=== PATIENT | female | born 1950 | race Caucasian/White ===

== ENCOUNTER 2023-03-13 10:03 | Emergency (ER) | payer MEDICARE, OTHER ==
[2023-03-13] MEDS ORDERED: Nitroglycerin 2% Oint 1 GM UD Packet TOP ONE (10:14)
[2023-03-13] MEDS ORDERED: Aspirin 81 MG Tab.Chew PO ONE (10:14)
[2023-03-13 10:32] LABS: BASOPHILS ABSOLUTE AUTO 0.03 10^3/uL (0.00-0.50); BASOPHILS PERCENT AUTO 0.7 % (0-1); EOSINOPHILS ABSOLUTE AUTO 0.18 10^3/uL (0.00-1.50); HEMATOCRIT 32.3 % (37.0-47.0); HEMOGLOBIN 11.3 g/dL (12.0-16.0); LYMPHOCYTES ABSOLUTE AUTO 0.92 10^3/uL (0.60-5.00); LYMPHOCYTES PERCENT AUTO 20.4 % (24-44); MEAN CORPUSCULAR HEMOGLOBIN 31.7 pg (27.0-32.0); MEAN CORPUSCULAR VOLUME 90.5 fL (83.0-97.0); MONOCYTES ABSOLUTE AUTO 0.51 10^3/uL (0.00-1.50); MONOCYTES PERCENT AUTO 11.3 % (0-10); NEUTROPHILS ABSOLUTE AUTO 2.87 x10^3/uL (1.80-8.00); NEUTROPHILS PERCENT AUTO 63.6 % (41-71); PLATELET COUNT,PLT 86 10^3/uL (150-400); RED BLOOD CELL COUNT 3.57 x10^6/uL (4.00-5.50); WHITE BLOOD CELL COUNT,WBC 4.5 10^3/uL (4.0-11.0)
[2023-03-13 10:41] LABS: APPEARANCE,URINE CLEAR (CLEAR); BILIRUBIN,URINE NEGATIVE (NEGATIVE); COLOR,URINE YELLOW (YELLOW); GLUCOSE,URINE NEGATIVE (NEGATIVE); KETONES,URINE NEGATIVE (NEGATIVE); LEUKOCYTE ESTERASE,URINE SMALL (NEGATIVE); NITRITE,URINE NEGATIVE (NEGATIVE); OCCULT BLOOD,URINE TRACE-INTACT (NEGATIVE); PH,URINE 5.5 (4.5-8.0); PROTEIN,URINE TRACE mg/dL (NEGATIVE); UROBILINOGEN,URINE 0.2 EU/dL (0.2-1.0)
[2023-03-13 10:49] LABS: BACTERIA,URINE FEW /HPF (NOT SEEN); EPITHELIAL CELLS,URINE FEW /HPF (NOT SEEN); MUCUS,URINE OCCASIONAL /HPF (NOT SEEN); RBC,URINE 0-5 /HPF (0-5)
[2023-03-13 10:55] LABS: ALBUMIN 3.3 g/dL (3.4-5.0); BILIRUBIN TOTAL 0.9 mg/dL (0.0-1.0); CALCIUM 9.3 mg/dL (8.4-10.1); CREATININE 1.5 mg/dL (0.6-1.0); EST CRCL DRUG DOSING (CG) 29.61 mL/min; MAGNESIUM 2.3 mg/dL (1.8-2.4); POTASSIUM,K 3.7 mEq/L (3.5-5.0); PROTEIN TOTAL,TP 6.9 g/dL (6.4-8.2)
[2023-03-13] MEDS ORDERED: Iopamidol 755 Mg/ML 100 ML Bottle IVPUSH ONE (11:46)
== END 2023-03-13 14:25 | disposition home or self-care (01) ==
LOC: CC.ED 10:03
DX: R07.89 Other chest pain (principal); R42 Dizziness and giddiness; Z88.5 Allergy status to narcotic agent; Z20.822 Contact with and (suspected) exposure to COVID-19
CPT/HCPCS: 36415; 71045; 71275; 80053; 81001; 82550; 83735; 83880; 84484; 85025; 85379; 93005; 93010; 99284; 99285; A9270-GY; Q9967; U0002

== ENCOUNTER 2023-09-28 14:39 | Emergency (ER) | payer MEDICARE, OTHER ==
[2023-09-28 15:08] LABS: BASOPHILS ABSOLUTE AUTO 0.05 10^3/uL (0.00-0.50); BASOPHILS PERCENT AUTO 0.5 % (0-1); EOSINOPHILS ABSOLUTE AUTO 0.18 10^3/uL (0.00-1.50); EOSINOPHILS PERCENT AUTO 1.9 % (0-6); IMMATURE GRAN ABSOLUTE AUTO 0.04 10^3/uL (0.00-0.49); IMMATURE GRAN PERCENT AUTO 0.4 % (0.0-4.9); LYMPHOCYTES PERCENT AUTO 21.9 % (24-44); MEAN CORPUSCULAR HEMOGLOBIN 31.5 pg (27.0-32.0); MEAN CORPUSCULAR HGB CONC 31.5 g/dL (32.0-36.0); MONOCYTES ABSOLUTE AUTO 0.68 10^3/uL (0.00-1.50); MONOCYTES PERCENT AUTO 7.1 % (0-10); NEUTROPHILS ABSOLUTE AUTO 6.53 x10^3/uL (1.80-8.00); NEUTROPHILS PERCENT AUTO 68.2 % (41-71); PLATELET COUNT,PLT 135 10^3/uL (150-400); RED BLOOD CELL COUNT 1.46 x10^6/uL (4.00-5.50); WHITE BLOOD CELL COUNT,WBC 9.6 10^3/uL (4.0-11.0)
[2023-09-28 15:14] LABS: HEMATOCRIT 14.6 % (37.0-47.0); HEMOGLOBIN 4.6 g/dL (12.0-16.0)
[2023-09-28 15:20] LABS: ALBUMIN 2.2 g/dL (3.4-5.0); BILIRUBIN TOTAL 0.6 mg/dL (0.0-1.0); CALCIUM 8.5 mg/dL (8.4-10.1); CREATININE 1.6 mg/dL (0.6-1.0); EST CRCL DRUG DOSING (CG) 27.34 mL/min; POTASSIUM,K 4.1 mEq/L (3.5-5.0); PROTEIN TOTAL,TP 4.9 g/dL (6.4-8.2)
[2023-09-28] MEDS ORDERED: Sodium Chloride 0.9% 250 ML IV SCH (15:30)
[2023-09-28] MEDS: Pantoprazole 40 MG Vial IVPUSH ONE (19:19)
[2023-09-28] MEDS: Pantoprazole 40 MG Vial IVPUSH SCH (19:19)
[2023-09-28] MEDS: Pantoprazole 40 MG in Sodium Chloride 0.9% 100 ML IV SCH (19:20)
[2023-09-28 19:27] LABS: INR 1.14 (0.92-1.18); PROTHROMBIN TIME 11.9 SEC (9.3-11.3)
[2023-09-28] MEDS ORDERED: Cyclobenzaprine 10 MG Tab PO PRN (20:19)
[2023-09-29 02:31] LABS: HEMATOCRIT 18.9 % (37.0-47.0); HEMOGLOBIN 6.1 g/dL (12.0-16.0)
[2023-09-29 07:49] LABS: BASOPHILS ABSOLUTE AUTO 0.02 10^3/uL (0.00-0.50); BASOPHILS PERCENT AUTO 0.4 % (0-1); EOSINOPHILS ABSOLUTE AUTO 0.15 10^3/uL (0.00-1.50); EOSINOPHILS PERCENT AUTO 2.6 % (0-6); IMMATURE GRAN ABSOLUTE AUTO 0.02 10^3/uL (0.00-0.49); IMMATURE GRAN PERCENT AUTO 0.4 % (0.0-4.9); LYMPHOCYTES ABSOLUTE AUTO 1.61 10^3/uL (0.60-5.00); LYMPHOCYTES PERCENT AUTO 28.2 % (24-44); MEAN CORPUSCULAR HEMOGLOBIN 29.2 pg (27.0-32.0); MEAN CORPUSCULAR HGB CONC 32.8 g/dL (32.0-36.0); MONOCYTES ABSOLUTE AUTO 0.46 10^3/uL (0.00-1.50); MONOCYTES PERCENT AUTO 8.1 % (0-10); NEUTROPHILS ABSOLUTE AUTO 3.45 x10^3/uL (1.80-8.00); NEUTROPHILS PERCENT AUTO 60.3 % (41-71); PLATELET COUNT,PLT 82 10^3/uL (150-400); RED BLOOD CELL COUNT 2.09 x10^6/uL (4.00-5.50); WHITE BLOOD CELL COUNT,WBC 5.7 10^3/uL (4.0-11.0)
[2023-09-29 07:57] LABS: HEMATOCRIT 18.6 % (37.0-47.0); HEMOGLOBIN 6.1 g/dL (12.0-16.0)
[2023-09-29 09:32] LABS: CALCIUM 7.9 mg/dL (8.4-10.1); CREATININE 1.5 mg/dL (0.6-1.0); EST CRCL DRUG DOSING (CG) 29.16 mL/min; POTASSIUM,K 3.9 mEq/L (3.5-5.0)
== END 2023-09-29 10:00 ==
LOC: CC.ED 14:39
DX: K92.2 Gastrointestinal hemorrhage, unspecified (principal); D69.6 Thrombocytopenia, unspecified; I10 Essential (primary) hypertension; E78.00 Pure hypercholesterolemia, unspecified; E03.9 Hypothyroidism, unspecified; Z79.899 Other long term (current) drug therapy; Z88.5 Allergy status to narcotic agent
CPT/HCPCS: 36415; 36430; 70450; 80048; 80053; 83605; 85014; 85018; 85025; 85610; 86850; 86900; 86901; 86920; 86922; 96365; 96366; 96376; 99284; 99285-25; C9113; J3490; P9016

== ENCOUNTER 2024-12-28 11:38 | Inpatient (IN) | payer MEDICARE, OTHER ==
[2024-12-28] MEDS: Sodium Chloride 0.9% 1,000 ML IV SCH ×2 (11:48→17:37)
[2024-12-28 12:10] LABS: BASOPHILS ABSOLUTE AUTO 0.02 10^3/uL (0.00-0.50); BASOPHILS PERCENT AUTO 0.3 % (0-1); EOSINOPHILS ABSOLUTE AUTO 0.05 10^3/uL (0.00-1.50); EOSINOPHILS PERCENT AUTO 0.7 % (0-6); HEMATOCRIT 35.9 % (37.0-47.0); HEMOGLOBIN 12.6 g/dL (12.0-16.0); IMMATURE GRAN ABSOLUTE AUTO 0.01 10^3/uL (0.00-0.49); IMMATURE GRAN PERCENT AUTO 0.1 % (0.0-4.9); LYMPHOCYTES PERCENT AUTO 10.7 % (24-44); MEAN CORPUSCULAR HEMOGLOBIN 33.2 pg (27.0-32.0); MEAN CORPUSCULAR HGB CONC 35.1 g/dL (32.0-36.0); MEAN CORPUSCULAR VOLUME 94.5 fL (83.0-97.0); MONOCYTES ABSOLUTE AUTO 0.62 10^3/uL (0.00-1.50); MONOCYTES PERCENT AUTO 8.3 % (0-10); NEUTROPHILS ABSOLUTE AUTO 5.99 x10^3/uL (1.80-8.00); NEUTROPHILS PERCENT AUTO 79.9 % (41-71); PLATELET COUNT,PLT 78 10^3/uL (150-400); WHITE BLOOD CELL COUNT,WBC 7.5 10^3/uL (4.0-11.0)
[2024-12-28 12:42] LABS: APPEARANCE,URINE CLEAR (CLEAR); BILIRUBIN,URINE NEGATIVE (NEGATIVE); COLOR,URINE YELLOW (YELLOW); GLUCOSE,URINE NEGATIVE (NEGATIVE); KETONES,URINE NEGATIVE (NEGATIVE); LEUKOCYTE ESTERASE,URINE NEGATIVE (NEGATIVE); NITRITE,URINE NEGATIVE (NEGATIVE); OCCULT BLOOD,URINE MODERATE (NEGATIVE); PH,URINE 5.5 (4.5-8.0); PROTEIN,URINE 30 mg/dL (NEGATIVE); UROBILINOGEN,URINE 0.2 EU/dL (0.2-1.0)
[2024-12-28 12:43] LABS: INR 1.09 (0.92-1.18); PROTHROMBIN TIME 11.2 SEC (9.3-11.3); PTT,PARTIAL THROMBOPLSTIN TIME 25.5 SEC (20.0-30.0)
[2024-12-28 12:50] LABS: BACTERIA,URINE OCCASIONAL /HPF (NOT SEEN); EPITHELIAL CELLS,URINE FEW /HPF (NOT SEEN); WBC,URINE 0-5 /HPF (0-5)
[2024-12-28 12:59] LABS: ALBUMIN 3.4 g/dL (3.4-5.0); BILIRUBIN TOTAL 4.6 mg/dL (0.0-1.0); CALCIUM 9.8 mg/dL (8.4-10.1); CREATININE 1.1 mg/dL (0.6-1.0); EST CRCL DRUG DOSING (CG) 40.73 mL/min; MAGNESIUM 1.9 mg/dL (1.8-2.4); POTASSIUM,K 3.7 mEq/L (3.5-5.0); PROTEIN TOTAL,TP 7.1 g/dL (6.4-8.2)
[2024-12-28] MEDS: Iopamidol 755 Mg/ML 100 ML Bottle IVPUSH ONE (14:11)
[2024-12-28] MEDS ORDERED: Non-Formulary Medication 1 Each (Alendronate Sodium [Alendronate Sodium] 70 MG Tablet) PO SCH (17:00)
[2024-12-28] MEDS ORDERED: Ondansetron 4 MG Tab.DIS PO PRN (17:00)
[2024-12-28] MEDS ORDERED: oxyCODONE 5 MG Tab PO PRN (17:00)
[2024-12-28] MEDS ORDERED: Ondansetron 4 MG/2 ML SDV IV PRN (17:00)
[2024-12-28] MEDS ORDERED: Cyclobenzaprine 10 MG Tab PO PRN (17:17)
[2024-12-28] MEDS: Carvedilol 3.125 MG Tab PO SCH (17:39)
[2024-12-28] MEDS ORDERED: Oxyquinoline/Emollient 0.3% Oint 4 OZ Canister TOP PRN (18:55)
[2024-12-28] MEDS: Nystatin Crm 30 GM Tube TOP SCH (19:39)
[2024-12-29] MEDS: Levothyroxine 150 MCG Tab PO SCH (06:52)
[2024-12-29] MEDS: Pantoprazole 40 MG Tab.CR PO SCH (06:52)
[2024-12-29] MEDS: Torsemide 20 MG Tab PO SCH (07:32)
[2024-12-29] MEDS: Cholecalciferol (Vitamin D3) 25 MCG Tab PO SCH (07:32)
[2024-12-29] MEDS: Lisinopril 10 MG Tab PO SCH (07:33)
[2024-12-29] MEDS: Magnesium Oxide 400 MG Tab PO SCH (07:33)
[2024-12-29] MEDS: Hydrochlorothiazide 12.5 MG Cap PO SCH (07:33)
[2024-12-29] MEDS: Multivitamin Tab PO SCH (07:34)
[2024-12-29] MEDS: Ascorbic Acid 500 MG Tab PO SCH (07:34)
[2024-12-29 07:45] LABS: BASOPHILS ABSOLUTE AUTO 0.01 10^3/uL (0.00-0.50); BASOPHILS PERCENT AUTO 0.3 % (0-1); EOSINOPHILS ABSOLUTE AUTO 0.13 10^3/uL (0.00-1.50); EOSINOPHILS PERCENT AUTO 3.4 % (0-6); HEMATOCRIT 28.1 % (37.0-47.0); HEMOGLOBIN 9.6 g/dL (12.0-16.0); IMMATURE GRAN ABSOLUTE AUTO 0.01 10^3/uL (0.00-0.49); IMMATURE GRAN PERCENT AUTO 0.3 % (0.0-4.9); LYMPHOCYTES ABSOLUTE AUTO 0.97 10^3/uL (0.60-5.00); LYMPHOCYTES PERCENT AUTO 25.2 % (24-44); MEAN CORPUSCULAR HGB CONC 34.2 g/dL (32.0-36.0); MEAN CORPUSCULAR VOLUME 96.6 fL (83.0-97.0); MONOCYTES ABSOLUTE AUTO 0.35 10^3/uL (0.00-1.50); MONOCYTES PERCENT AUTO 9.1 % (0-10); NEUTROPHILS ABSOLUTE AUTO 2.38 x10^3/uL (1.80-8.00); NEUTROPHILS PERCENT AUTO 61.7 % (41-71); PLATELET COUNT,PLT 54 10^3/uL (150-400); RED BLOOD CELL COUNT 2.91 x10^6/uL (4.00-5.50); WHITE BLOOD CELL COUNT,WBC 3.9 10^3/uL (4.0-11.0)
[2024-12-29] MEDS ORDERED: Non-Formulary Medication 1 Each (Lisinopril/Hydrochlorothiazide 1 EACH Tablet) PO SCH (08:00)
[2024-12-29 08:26] LABS: ALBUMIN 2.4 g/dL (3.4-5.0); BILIRUBIN TOTAL 2.3 mg/dL (0.0-1.0); C-REACTIVE PROTEIN 5.84 mg/dL (<=0.50); CALCIUM 8.3 mg/dL (8.4-10.1); CREATININE 1.1 mg/dL (0.6-1.0); EST CRCL DRUG DOSING (CG) 40.73 mL/min; POTASSIUM,K 3.4 mEq/L (3.5-5.0); PROTEIN TOTAL,TP 5.4 g/dL (6.4-8.2)
[2024-12-30 07:59] LABS: BASOPHILS ABSOLUTE AUTO 0.01 10^3/uL (0.00-0.50); BASOPHILS PERCENT AUTO 0.3 % (0-1); EOSINOPHILS ABSOLUTE AUTO 0.13 10^3/uL (0.00-1.50); EOSINOPHILS PERCENT AUTO 4.3 % (0-6); HEMATOCRIT 28.3 % (37.0-47.0); HEMOGLOBIN 9.7 g/dL (12.0-16.0); IMMATURE GRAN ABSOLUTE AUTO 0.01 10^3/uL (0.00-0.49); IMMATURE GRAN PERCENT AUTO 0.3 % (0.0-4.9); LYMPHOCYTES ABSOLUTE AUTO 0.88 10^3/uL (0.60-5.00); LYMPHOCYTES PERCENT AUTO 29.1 % (24-44); MEAN CORPUSCULAR HEMOGLOBIN 32.8 pg (27.0-32.0); MEAN CORPUSCULAR HGB CONC 34.3 g/dL (32.0-36.0); MEAN CORPUSCULAR VOLUME 95.6 fL (83.0-97.0); MONOCYTES PERCENT AUTO 9.9 % (0-10); NEUTROPHILS ABSOLUTE AUTO 1.69 x10^3/uL (1.80-8.00); NEUTROPHILS PERCENT AUTO 56.1 % (41-71); PLATELET COUNT,PLT 51 10^3/uL (150-400); RED BLOOD CELL COUNT 2.96 x10^6/uL (4.00-5.50)
[2024-12-30 09:26] LABS: ALBUMIN 2.6 g/dL (3.4-5.0); BILIRUBIN TOTAL 1.4 mg/dL (0.0-1.0); C-REACTIVE PROTEIN 4.07 mg/dL (<=0.50); CALCIUM 8.2 mg/dL (8.4-10.1); CREATININE 1.2 mg/dL (0.6-1.0); EST CRCL DRUG DOSING (CG) 37.34 mL/min; POTASSIUM,K 3.5 mEq/L (3.5-5.0); PROTEIN TOTAL,TP 5.8 g/dL (6.4-8.2)
[2024-12-31 07:18] LABS: BASOPHILS ABSOLUTE AUTO 0.01 10^3/uL (0.00-0.50); BASOPHILS PERCENT AUTO 0.3 % (0-1); EOSINOPHILS ABSOLUTE AUTO 0.16 10^3/uL (0.00-1.50); EOSINOPHILS PERCENT AUTO 5.4 % (0-6); HEMATOCRIT 29.6 % (37.0-47.0); HEMOGLOBIN 10.1 g/dL (12.0-16.0); IMMATURE GRAN ABSOLUTE AUTO 0.01 10^3/uL (0.00-0.49); IMMATURE GRAN PERCENT AUTO 0.3 % (0.0-4.9); LYMPHOCYTES ABSOLUTE AUTO 0.91 10^3/uL (0.60-5.00); MEAN CORPUSCULAR HEMOGLOBIN 32.4 pg (27.0-32.0); MEAN CORPUSCULAR HGB CONC 34.1 g/dL (32.0-36.0); MEAN CORPUSCULAR VOLUME 94.9 fL (83.0-97.0); MONOCYTES ABSOLUTE AUTO 0.25 10^3/uL (0.00-1.50); MONOCYTES PERCENT AUTO 8.5 % (0-10); NEUTROPHILS PERCENT AUTO 54.5 % (41-71); PLATELET COUNT,PLT 65 10^3/uL (150-400); RED BLOOD CELL COUNT 3.12 x10^6/uL (4.00-5.50); WHITE BLOOD CELL COUNT,WBC 2.9 10^3/uL (4.0-11.0)
[2024-12-31 07:19] LABS: ALBUMIN 2.7 g/dL (3.4-5.0); C-REACTIVE PROTEIN 2.69 mg/dL (<=0.50); CALCIUM 8.3 mg/dL (8.4-10.1); CREATININE 1.3 mg/dL (0.6-1.0); EST CRCL DRUG DOSING (CG) 34.46 mL/min; POTASSIUM,K 3.7 mEq/L (3.5-5.0); PROTEIN TOTAL,TP 6.2 g/dL (6.4-8.2)
[2025-01-01 08:08] LABS: BASOPHILS ABSOLUTE AUTO 0.01 10^3/uL (0.00-0.50); BASOPHILS PERCENT AUTO 0.4 % (0-1); EOSINOPHILS ABSOLUTE AUTO 0.12 10^3/uL (0.00-1.50); EOSINOPHILS PERCENT AUTO 4.5 % (0-6); HEMATOCRIT 29.6 % (37.0-47.0); HEMOGLOBIN 10.1 g/dL (12.0-16.0); IMMATURE GRAN ABSOLUTE AUTO 0.01 10^3/uL (0.00-0.49); IMMATURE GRAN PERCENT AUTO 0.4 % (0.0-4.9); LYMPHOCYTES ABSOLUTE AUTO 0.88 10^3/uL (0.60-5.00); MEAN CORPUSCULAR HEMOGLOBIN 32.8 pg (27.0-32.0); MEAN CORPUSCULAR HGB CONC 34.1 g/dL (32.0-36.0); MEAN CORPUSCULAR VOLUME 96.1 fL (83.0-97.0); MONOCYTES ABSOLUTE AUTO 0.28 10^3/uL (0.00-1.50); MONOCYTES PERCENT AUTO 10.5 % (0-10); NEUTROPHILS ABSOLUTE AUTO 1.37 x10^3/uL (1.80-8.00); NEUTROPHILS PERCENT AUTO 51.2 % (41-71); PLATELET COUNT,PLT 57 10^3/uL (150-400); RED BLOOD CELL COUNT 3.08 x10^6/uL (4.00-5.50); WHITE BLOOD CELL COUNT,WBC 2.7 10^3/uL (4.0-11.0)
[2025-01-01 08:09] LABS: ALBUMIN 2.7 g/dL (3.4-5.0); BILIRUBIN TOTAL 1.2 mg/dL (0.0-1.0); C-REACTIVE PROTEIN 1.74 mg/dL (<=0.50); CALCIUM 8.7 mg/dL (8.4-10.1); CREATININE 1.3 mg/dL (0.6-1.0); EST CRCL DRUG DOSING (CG) 34.46 mL/min; POTASSIUM,K 3.9 mEq/L (3.5-5.0)
[2025-01-02 08:13] VITALS: BP 140/50; PULSE 65
== END 2025-01-02 10:25 | DRG 948 ==
LOC: CC.ED 11:38 → CC.MS 16:29 → UNDOADMIN 16:56 → CC.MS 16:56
PROVIDERS: ADMIT Physician Assistant Medical; ATTEND Nurse Practitioner Family
DX: R41.82 Altered mental status, unspecified (principal); E78.00 Pure hypercholesterolemia, unspecified; I10 Essential (primary) hypertension; G89.29 Other chronic pain; E03.9 Hypothyroidism, unspecified; Z79.890 Hormone replacement therapy; R79.89 Other specified abnormal findings of blood chemistry; E80.6 Other disorders of bilirubin metabolism; M21.371 Foot drop, right foot; I11.0 Hypertensive heart disease with heart failure; I50.9 Heart failure, unspecified; Z90.49 Acquired absence of other specified parts of digestive tract; Z90.710 Acquired absence of both cervix and uterus; Z88.5 Allergy status to narcotic agent; Z79.899 Other long term (current) drug therapy
CPT/HCPCS: 36415; 70450; 71045; 74177; 80053; 81001; 82140; 82550; 83735; 84484; 85025; 85610; 85730; 86140; 87426-QW; 93005; 93010; 96360; 96361; 97110-GP; 97161-GP; 99223; 99232; 99233; 99238; 99285-25; A9270-GY; J7030; Q9967

== ENCOUNTER 2025-02-03 16:20 | Inpatient (IN) | payer MEDICARE, OTHER ==
[2025-02-03 16:50] LABS: AMPHETAMINES,URINE NEGATIVE (NEGATIVE); BARBITURATES,URINE NEGATIVE (NEGATIVE); BENZODIAZEPINE,URINE NEGATIVE (NEGATIVE); MDMA (ECSTASY), URINE NEGATIVE (NEGATIVE); METHADONE,URINE NEGATIVE (NEGATIVE); METHAMPHETAMINES,URINE NEGATIVE (NEGATIVE); OPIATES,URINE NEGATIVE (NEGATIVE); OXYCODONE,URINE NEGATIVE (NEGATIVE); PHENCYCLIDINE,URINE NEGATIVE (NEGATIVE); TCA,URINE NEGATIVE (NEGATIVE)
[2025-02-03 16:51] LABS: MAGNESIUM 2.5 mg/dL (1.8-2.4)
[2025-02-03 16:52] LABS: C-REACTIVE PROTEIN < 0.50 mg/dL (<=0.50)
[2025-02-03] MEDS: Acetaminophen 325 MG Tab PO ONE (17:53)
[2025-02-03] MEDS: Lactulose Soln 10 GM/15 ML 30 ML UD Cup PO SCH (19:25)
[2025-02-03] MEDS ORDERED: Ondansetron 4 MG Tab.DIS PO PRN (19:50)
[2025-02-03] MEDS ORDERED: Ondansetron 4 MG/2 ML SDV IV PRN (19:50)
[2025-02-03] MEDS: Sodium Chloride 0.9% 1,000 ML ONE (20:14)
[2025-02-03] MEDS: Sodium Chloride 0.9% 1,000 ML IV ONE (20:14)
[2025-02-03] MEDS ORDERED: Cyclobenzaprine 10 MG Tab PO PRN (20:58)
[2025-02-04] MEDS: Levothyroxine 150 MCG Tab PO SCH (06:21)
[2025-02-04 07:45] LABS: BASOPHILS ABSOLUTE AUTO 0.01 10^3/uL (0.00-0.50); BASOPHILS PERCENT AUTO 0.4 % (0-1); EOSINOPHILS ABSOLUTE AUTO 0.08 10^3/uL (0.00-1.50); EOSINOPHILS PERCENT AUTO 3.3 % (0-6); HEMATOCRIT 28.8 % (37.0-47.0); HEMOGLOBIN 9.6 g/dL (12.0-16.0); IMMATURE GRAN ABSOLUTE AUTO 0.01 10^3/uL (0.00-0.49); IMMATURE GRAN PERCENT AUTO 0.4 % (0.0-4.9); LYMPHOCYTES ABSOLUTE AUTO 0.69 10^3/uL (0.60-5.00); LYMPHOCYTES PERCENT AUTO 28.4 % (24-44); MEAN CORPUSCULAR HEMOGLOBIN 32.7 pg (27.0-32.0); MEAN CORPUSCULAR HGB CONC 33.3 g/dL (32.0-36.0); MONOCYTES ABSOLUTE AUTO 0.36 10^3/uL (0.00-1.50); MONOCYTES PERCENT AUTO 14.8 % (0-10); NEUTROPHILS ABSOLUTE AUTO 1.28 x10^3/uL (1.80-8.00); NEUTROPHILS PERCENT AUTO 52.7 % (41-71); PLATELET COUNT,PLT 61 10^3/uL (150-400); RED BLOOD CELL COUNT 2.94 x10^6/uL (4.00-5.50); WHITE BLOOD CELL COUNT,WBC 2.4 10^3/uL (4.0-11.0)
[2025-02-04] MEDS: Hydrochlorothiazide 12.5 MG Cap PO SCH (07:45)
[2025-02-04] MEDS: Ascorbic Acid 500 MG Tab PO SCH (07:47)
[2025-02-04] MEDS: Lisinopril 10 MG Tab PO SCH (07:47)
[2025-02-04] MEDS: Pantoprazole 40 MG Tab.CR PO SCH (07:47)
[2025-02-04] MEDS: Cholecalciferol (Vitamin D3) 25 MCG Tab PO SCH (07:48)
[2025-02-04] MEDS: Magnesium Oxide 400 MG Tab PO SCH (07:49)
[2025-02-04] MEDS: Carvedilol 3.125 MG Tab PO SCH (07:50)
[2025-02-04 07:52] LABS: ALBUMIN 2.9 g/dL (3.4-5.0); BILIRUBIN TOTAL 1.3 mg/dL (0.0-1.0); CALCIUM 9.1 mg/dL (8.4-10.1); CREATININE 1.5 mg/dL (0.6-1.0); EST CRCL DRUG DOSING (CG) 26.39 mL/min; MAGNESIUM 2.4 mg/dL (1.8-2.4); POTASSIUM,K 3.7 mEq/L (3.5-5.0); PROTEIN TOTAL,TP 6.2 g/dL (6.4-8.2)
[2025-02-04] MEDS: Nystatin Crm 30 GM Tube TOP SCH (07:55)
[2025-02-04] MEDS ORDERED: Non-Formulary Medication 1 Each (Lisinopril/Hydrochlorothiazide 1 EACH Tablet) PO SCH (08:00)
[2025-02-05 07:34] LABS: BASOPHILS ABSOLUTE AUTO 0.01 10^3/uL (0.00-0.50); BASOPHILS PERCENT AUTO 0.4 % (0-1); EOSINOPHILS ABSOLUTE AUTO 0.08 10^3/uL (0.00-1.50); EOSINOPHILS PERCENT AUTO 3.5 % (0-6); HEMATOCRIT 27.6 % (37.0-47.0); HEMOGLOBIN 9.1 g/dL (12.0-16.0); IMMATURE GRAN ABSOLUTE AUTO 0.01 10^3/uL (0.00-0.49); IMMATURE GRAN PERCENT AUTO 0.4 % (0.0-4.9); LYMPHOCYTES ABSOLUTE AUTO 0.72 10^3/uL (0.60-5.00); LYMPHOCYTES PERCENT AUTO 31.6 % (24-44); MEAN CORPUSCULAR HEMOGLOBIN 32.5 pg (27.0-32.0); MEAN CORPUSCULAR VOLUME 98.6 fL (83.0-97.0); MONOCYTES ABSOLUTE AUTO 0.25 10^3/uL (0.00-1.50); NEUTROPHILS ABSOLUTE AUTO 1.21 x10^3/uL (1.80-8.00); NEUTROPHILS PERCENT AUTO 53.1 % (41-71); PLATELET COUNT,PLT 58 10^3/uL (150-400); WHITE BLOOD CELL COUNT,WBC 2.3 10^3/uL (4.0-11.0)
[2025-02-05 07:55] LABS: ALBUMIN 2.7 g/dL (3.4-5.0); CREATININE 1.3 mg/dL (0.6-1.0); EST CRCL DRUG DOSING (CG) 30.45 mL/min; MAGNESIUM 2.2 mg/dL (1.8-2.4); POTASSIUM,K 3.9 mEq/L (3.5-5.0); PROTEIN TOTAL,TP 5.9 g/dL (6.4-8.2)
[2025-02-05] MEDS: Lactulose Soln 10 GM/15 ML 30 ML UD Cup PO SCH (14:13)
[2025-02-05] MEDS ORDERED: Nystatin Crm 30 GM Tube TOP PRN (16:43)
[2025-02-06 07:31] LABS: BASOPHILS ABSOLUTE AUTO 0.01 10^3/uL (0.00-0.50); BASOPHILS PERCENT AUTO 0.4 % (0-1); EOSINOPHILS ABSOLUTE AUTO 0.12 10^3/uL (0.00-1.50); EOSINOPHILS PERCENT AUTO 4.7 % (0-6); HEMATOCRIT 28.5 % (37.0-47.0); HEMOGLOBIN 9.4 g/dL (12.0-16.0); IMMATURE GRAN ABSOLUTE AUTO 0.01 10^3/uL (0.00-0.49); IMMATURE GRAN PERCENT AUTO 0.4 % (0.0-4.9); LYMPHOCYTES ABSOLUTE AUTO 0.61 10^3/uL (0.60-5.00); LYMPHOCYTES PERCENT AUTO 23.8 % (24-44); MEAN CORPUSCULAR HEMOGLOBIN 32.2 pg (27.0-32.0); MEAN CORPUSCULAR VOLUME 97.6 fL (83.0-97.0); MONOCYTES ABSOLUTE AUTO 0.32 10^3/uL (0.00-1.50); MONOCYTES PERCENT AUTO 12.5 % (0-10); NEUTROPHILS ABSOLUTE AUTO 1.49 x10^3/uL (1.80-8.00); NEUTROPHILS PERCENT AUTO 58.2 % (41-71); PLATELET COUNT,PLT 60 10^3/uL (150-400); RED BLOOD CELL COUNT 2.92 x10^6/uL (4.00-5.50); WHITE BLOOD CELL COUNT,WBC 2.6 10^3/uL (4.0-11.0)
[2025-02-06 07:40] LABS: ALBUMIN 2.8 g/dL (3.4-5.0); BILIRUBIN TOTAL 1.1 mg/dL (0.0-1.0); CREATININE 1.2 mg/dL (0.6-1.0); EST CRCL DRUG DOSING (CG) 32.99 mL/min; MAGNESIUM 2.1 mg/dL (1.8-2.4); POTASSIUM,K 3.9 mEq/L (3.5-5.0)
== END 2025-02-06 12:35 | disposition home or self-care (01) | DRG 642 ==
LOC: CC.ED 16:20 → CC.MS 18:51 → UNDOADMIN 19:30 → CC.MS 19:30
PROVIDERS: ADMIT Nurse Practitioner; ATTEND Nurse Practitioner
DX: E72.20 Disorder of urea cycle metabolism, unspecified (principal); N17.9 Acute kidney failure, unspecified; R53.1 Weakness; E78.00 Pure hypercholesterolemia, unspecified; I10 Essential (primary) hypertension; K76.82 Hepatic encephalopathy; G89.29 Other chronic pain; M54.9 Dorsalgia, unspecified; E03.9 Hypothyroidism, unspecified; Z90.49 Acquired absence of other specified parts of digestive tract; Z79.890 Hormone replacement therapy; Z88.5 Allergy status to narcotic agent; Z90.710 Acquired absence of both cervix and uterus; Z79.899 Other long term (current) drug therapy; Z88.8 Allergy status to other drugs, medicaments and biological substances
CPT/HCPCS: 36415; 70450; 80305; 82140; 82947; 83735; 86140; 99285; A9270 ×2; 70553; 76705; 80053; 85025; 97110-GP; 97162-GP; 99223; 99232; 99233; 99239; J7030